=== PATIENT | male | born 1950 | race Caucasian/White ===

== ENCOUNTER 2020-10-07 12:14 | Outpatient (REF) | payer MEDICARE, SELFPAY | END 2020-10-07 12:15 | disposition home or self-care (01) | LOC: HO.LAB 12:14 | PROVIDERS: PCP Internal Medicine; Visit Provider Internal Medicine | DX: Z20.822 Contact with and (suspected) exposure to COVID-19 (principal) | CPT/HCPCS: 36415; C9803; U0003; U0005 ==

== ENCOUNTER 2021-03-11 09:23 | Outpatient (REF) | payer MEDICARE, SELFPAY ==
[2021-03-11 10:09] LABS: MANUAL DIFF FLAG NO
[2021-03-11 10:12] LABS: Basophils Percent Auto 0.7 % (0-2); Eosinophils Absolute Auto 0.1 X10*3/uL (0.0-0.4); Eosinophils Percent Auto 1.8 % (0-4); Hemoglobin 13.8 g/dl (14.0-18.0); Imm Gran Abs Auto 0.02 X10*3/uL (0.00-0.03); Imm Gran Pct Auto 0.5 % (0.0-0.4); Lymphocytes Absolute Auto 0.7 X10*3/uL (1.2-4.9); Mean Corpuscular HGB Conc 33.7 g/dl (31.0-36.0); Mean Corpuscular Hemoglobin 32.2 pg (27.0-33.0); Mean Corpuscular Volume 95.8 fL (80-98); Monocytes Absolute Auto 0.4 X10*3/uL (0.1-1.2); Monocytes Percent Auto 9.6 % (2-11); Neutrophils Absolute Auto 3.1 X10*3/uL (2.0-8.3); Neutrophils Percent Auto 70.4 % (45-73); Platelet Count 239 X10*3/uL (160-400); Red Blood Count 4.28 X10*6/uL (4.60-5.80); White Blood Count 4.4 X10*3/uL (4.8-10.8)
[2021-03-11 10:41] LABS: Alanine Aminotransferase 16 U/L (0-40); Albumin Level 4.4 g/dL (3.5-5.0); Alkaline Phosphatase 49 U/L (39-117); Anion Gap 11 (12-20); Aspartate Amino Transferase 25 U/L (5-37); Blood Urea Nitrogen 25 mg/dL (9-16); Calcium 9.2 mg/dL (8.4-10.2); Carbon Dioxide 29 mmol/L (22-29); Chloride 104 mmol/L (96-108); Cholesterol 158 mg/dL; Estimated Glomerular Filt Rate 59; Glucose Fasting 99 mg/dL (60-99); HDL Cholesterol 52 mg/dL; LDL Cholesterol Calculated 93 mg/dl; Potassium 4.6 mmol/L (3.3-5.1); Sodium 139 mmol/L (135-145); Total Protein 6.9 g/dL (6.5-8.0); Triglycerides 66 mg/dL; Uric Acid 4.4 mg/dL (3.4-7.0)
[2021-03-11 11:03] LABS: Free T4 (Free Thyroxine) 0.97 ng/dL (0.71-1.85); Prostate Specific Antigen 1.49 ng/mL (<0.05-4.0); Thyroid Stimulating Hormone 2.97 uIU/mL (0.32-4.0)
== END 2021-03-11 09:24 | disposition home or self-care (01) ==
LOC: HO.LAB 09:23
PROVIDERS: PCP Internal Medicine; Visit Provider Internal Medicine
DX: I10 Essential (primary) hypertension (principal); E03.9 Hypothyroidism, unspecified; E78.00 Pure hypercholesterolemia, unspecified; Z87.39 Personal history of other diseases of the musculoskeletal system and connective tissue; R35.1 Nocturia
CPT/HCPCS: 36415; 80053; 80061; 84153; 84439; 84443; 84550; 85025

== ENCOUNTER 2022-05-09 08:36 | Outpatient (REF) | payer MEDICARE, SELFPAY ==
--- NOTE | ~2022-05-09 | XR_ITS ---
EXAMINATION: XR CHEST CLINICAL INFORMATION: Posterior upper left pain, scapular region. Weight loss. COMPARISON: Chest radiographs 04/19/2019, 12/02/2011 TECHNIQUE: 2 views of the chest were obtained. FINDINGS: No pneumothorax, pleural reaction, infiltrate, or effusion. There is no lobar or segmental airspace consolidation or groundglass opacity. The costophrenic sulci are clear. No hyperinflation. Heart size normal. Vascularity normal. The hilar and mediastinal contours are unremarkable. No visible acute bony abnormality. XR/XR chest 2V IMPRESSION: Unremarkable examination.
[2022-05-09 08:50] LABS: MANUAL DIFF FLAG NO
[2022-05-09 09:36] LABS: Appearance Urine Clear; Color Urine Yellow; Glucose Urine UA Negative (Negative); Leukocyte Esterase Urine Negative (Negative); Nitrite Urine Negative (Negative); Urine Blood Negative (Negative); Urine Ketones Trace mg/dL (Negative); Urine Protein Negative (Neg-Trace)
[2022-05-09 09:37] LABS: Basophils Percent Auto 0.9 % (0-2); Eosinophils Absolute Auto 0.3 X10*3/uL (0.0-0.4); Hematocrit 43.1 % (42.0-52.0); Hemoglobin 14.3 g/dl (14.0-18.0); Imm Gran Abs Auto 0.02 X10*3/uL (0.00-0.03); Imm Gran Pct Auto 0.4 % (0.0-0.4); Lymphocytes Absolute Auto 1.1 X10*3/uL (1.2-4.9); Mean Corpuscular HGB Conc 33.2 g/dl (31.0-36.0); Mean Corpuscular Hemoglobin 31.8 pg (27.0-33.0); Mean Corpuscular Volume 95.8 fL (80.0-98.0); Mean Platelet Volume 9.8 fL (9.4-12.4); Monocytes Absolute Auto 0.4 X10*3/uL (0.1-1.2); Monocytes Percent Auto 9.3 % (2-11); Neutrophils Absolute Auto 2.6 x10*3/uL (2.0-8.3); Neutrophils Percent Auto 58.4 % (45-73); Platelet Count 290 X10*3/uL (160-400); Red Cell Distribution Width 14.6 % (11.0-16.0); White Blood Count 4.5 X10*3/uL (4.8-10.8)
[2022-05-09 10:05] LABS: Alanine Aminotransferase 21 U/L (0-40); Albumin Level 4.6 g/dL (3.5-5.0); Alkaline Phosphatase 57 U/L (39-117); Anion Gap 16 (12-20); Aspartate Amino Transferase 25 U/L (5-37); Bilirubin Total 0.8 mg/dL (0.0-1.0); Blood Urea Nitrogen 23 mg/dL (9-16); C Reactive Protein 0.06 mg/dL (< or = 0.50); Calcium 9.4 mg/dL (8.4-10.2); Carbon Dioxide 26 mmol/L (22-29); Chloride 102 mmol/L (96-108); Cholesterol 178 mg/dL; Estimated Glomerular Filt Rate 57; Glucose Fasting 99 mg/dL (60-99); HDL Cholesterol 53 mg/dL; LDL Cholesterol Calculated 109 mg/dl; Potassium 4.5 mmol/L (3.3-5.1); Sodium 139 mmol/L (135-145); Total Protein 7.3 g/dL (6.5-8.0); Triglycerides 81 mg/dL
[2022-05-09 10:28] LABS: Free T4 (Free Thyroxine) 1.01 ng/dL (0.71-1.85); Prostate Specific Antigen Scr 1.38 ng/mL (<0.05-4.0); Thyroid Stimulating Hormone 2.21 uIU/mL (0.32-4.0)
== END 2022-05-09 08:37 | disposition home or self-care (01) ==
LOC: HO.XRAY 08:36
PROVIDERS: PCP Internal Medicine; Visit Provider Internal Medicine
DX: I12.9 Hypertensive chronic kidney disease with stage 1 through stage 4 chronic kidney disease, or unspecified chronic kidney disease (principal); E03.9 Hypothyroidism, unspecified; R63.4 Abnormal weight loss; N18.9 Chronic kidney disease, unspecified; Z12.5 Encounter for screening for malignant neoplasm of prostate
CPT/HCPCS: 36415; 71046; 80053; 80061; 81003; 84153; 84439; 84443; 85025; 86140

== ENCOUNTER 2022-06-22 10:13 | Outpatient (REF) | payer MEDICARE, SELFPAY ==
--- NOTE | ~2022-06-22 | US_ITS ---
EXAMINATION: US EXTRACRANIAL CAROTID DUPLEX, BILATERAL CLINICAL INFORMATION: Carotid stenosis. Hypertension. COMPARISON: 05/07/2019. TECHNIQUE: Real-time ultrasound and Doppler techniques (integrating B-mode 2-D vascular images, Doppler spectral analysis and color-flow Doppler imaging) were utilized to interrogate the extracranial carotid arteries, the vertebral arteries and proximal subclavian arteries bilaterally. The degree of stenosis is determined by criteria similar to NASCET. FINDINGS: Right Side: 1. There is moderate atherosclerotic plaque seen in the bifurcation/proximal ICA region. 2. The common carotid artery PSV proximally is 84 cm/s and distally 90 cm/s. 3. The proximal internal carotid artery velocities are 90 cm/s systolic and 32 cm/s diastolic. 4. The proximal external carotid artery PSV is 469 cm/s. 5. The vertebral artery shows antegrade flow. 6. The subclavian artery waveforms are normal. Left Side: 1. There is mild atherosclerotic plaque seen in the bifurcation/proximal ICA region. 2. The common carotid artery PSV proximally is 167 cm/s and distally 130 cm/s. 3. The proximal internal carotid artery velocities are 65 cm/s systolic and 17 cm/s diastolic. 4. The proximal external carotid artery PSV is 125 cm/s. 5. The vertebral artery shows antegrade flow. 6. The subclavian artery waveforms are normal. US/US carotid duplex BI IMPRESSION: 1. RIGHT: Minimal, non-hemodynamically significant stenosis of the proximal right internal carotid artery corresponding to a 0-49% stenosis by velocity criteria. 2. LEFT: Minimal, non-hemodynamically significant stenosis of the proximal left internal carotid artery corresponding to a 0-49% stenosis by velocity criteria. 3. There is no change in the category severity of disease when compared to the previous study dated 05/07/2019.
--- NOTE | ~2022-06-22 | US_ITS ---
EXAMINATION: US THYROID CLINICAL INFORMATION: History of neck radiation. COMPARISON: None. TECHNIQUE: Linear transducer grayscale and color Doppler examination with attention to the region of the thyroid. FINDINGS: SIZE: Measurements of the thyroid lobes and nodules are given in sagittal, anteroposterior and transverse dimensions respectively. Right Thyroid Lobe: 4.2 x 1.3 x 1.0 cm, volume 2.9 mL. Previously 4.8 x 1.7 x 1.3 cm, volume 5.5 mL. Parenchyma: The gland echotexture is heterogeneous. Thyroid vascularity is normal. Left Thyroid Lobe: 4.1 x 1.3 x 1.5 cm, volume 4.2 mL. Previously 2.9 x 1.2 x 1.3 cm, volume 2.5 mL. Parenchyma: The gland echotexture is heterogeneous. Thyroid vascularity is normal. Isthmus: 0.2 cm in maximum AP dimension. Previously 0.4 cm. No focal thyroid nodule is seen. NODES: No lymphadenopathy is seen in the tissue surrounding the thyroid gland. US/US thyroid IMPRESSION: Diminutive thyroid with heterogeneous echotexture bilaterally. No thyroid nodule or mass seen..
== END 2022-06-22 10:14 | disposition home or self-care (01) ==
LOC: HO.US 10:13
PROVIDERS: Visit Provider Internal Medicine
DX: I65.29 Occlusion and stenosis of unspecified carotid artery (principal); Z92.3 Personal history of irradiation
CPT/HCPCS: 76536; 93880

== ENCOUNTER 2022-10-24 11:10 | Day surgery (SDC) | payer MEDICARE, SELFPAY ==
[2022-10-24] VITALS (9 sets, daily range): BP systolic 121–227; BP diastolic 78–136; PULSE 72–99; RESP 14–20; TEMP 37–37.1; O2SAT 96–98; BMI 25.1
--- NOTE | 2022-10-24 12:37 | HO.ANESPROP2 ---
HPI - Anesthesia Eval Consult details Narrative: colonoscopy [facility] Past Medical History Medical History (Updated 10/21/22 @ 12:26 by Little Mayo RN) GERD (gastroesophageal reflux disease) Gout HTN (hypertension) Hyperlipidemia Hypothyroidism Squamous cell carcinoma of tonsil Family History Family history of problems with anesthesia: No Surgical History Surgical History (Updated 10/21/22 @ 12:26 by Little Mayo RN) H/O neck surgery History of Problems with Anesthesia: No Social History Social History Patient Tobacco Use Status: Never used Tobacco Use of substances other than those prescribed or required for medical reasons: No Are you DNR?: No Advance Directives: No Advance Directives Information Provided: Yes Recently lost weight without trying: No Nutrition Risks: No Nutritional Risk Meds Allergies Allergy/AdvReac Type Severity Reaction Status Date / Time azithromycin Allergy Mild SWELLING,SKIN Unverified 05/07/20 15:09 [From Zithromax Z-Maynor] IRRITATION Active Medications: Current Medications Sodium Biphosphate/Sodium Phosphate (Sodium Phosphate,Uint[place]-Dibasic 133 Ml Enema) 133 ml GA ONCE PRN PRN Reason: Poor Colonoscopy Prep Results Home Medications Medication Instructions Recorded Confirmed Last Taken Type allopurinol 300 mg tablet 1 tab PO DAILY 10/21/22 10/21/22 Unknown History atorvastatin 10 mg tablet 1 tab PO DAILY 10/21/22 10/21/22 Unknown History levothyroxine 75 mcg tablet 1 tab PO DAILY 10/21/22 10/21/22 Unknown History lisinopril 10 mg tablet 1 tab PO BID 10/21/22 10/21/22 Unknown History omeprazole 20 mg capsule,delayed 1 cap PO DAILY 10/21/22 10/21/22 Unknown History release Exam Exam Date and Time: October 24, 2022 1237 Height,Weight and Vital Signs: Height 5 ft 10 in Weight 79.379 kg Last Vital Signs Temp 98.7 F 10/24/22 12:29 Pulse 99 10/24/22 12:33 Resp 16 10/24/22 12:29 BP 205/123 H 10/24/22 12:33 Pulse Ox 97 10/24/22 12:29 O2 Del Method 10/24/22 12:29 Narrative Narrative: high bp on admission, no meds taken Airway Mallampati Class: II TM Dist: >3cm Neck ROM: Full Heart: rrr Lungs: cta Assessment and Plan Final Anesthetic Review Family History of Problems with Anesthesia: No History of Problems with Anesthesia: No NPO: Yes ASA Class: II Final Preanesthetic Review: No Changes in Pt Med Stat, Meds/Allgs Chart Reviewed and Anes Risks/Benef Reviewed Patient Risk: Intermediate Procedure Risk: Low Anesthetic Plan Anesthetic Plan: MAC: and Agree w/ Assess. and Plan Disposition: Standard PACU
--- NOTE | 2022-10-24 13:48 | PM.OP ---
Brief Operative Note Date of Service: 10/24/22 Pre-op diagnosis: Screening Post-op diagnosis: other (Polyps) Procedure: Colonoscopy to the cecum and TI with bx/removal of appendiceal orifice polyp, and hot snare polypectomy of 2 adjacent cecal polyps with placement of 1 Resolution clip. Surgeon: Boyd Newton Anesthesia: MAC Was an Magnetic Resonance Technologist used for this Procedure?: No Estimated blood loss (mL): 2.0 Pathology: other (A. Appendiceal orifice polyp B. Cecal polyps) Condition: stable Disposition: PACU
--- NOTE | 2022-10-25 00:18 | OP_ITS ---
SURGEON: Boyd Newton MD INDICATIONS: The patient presents for evaluation of colorectal cancer screening and family history of colon cancer, as well as his personal history of tubular adenoma of the colon. Full consent has been obtained from him for this, including risks of bleeding and perforation. PREOPERATIVE DIAGNOSIS: POSTOPERATIVE DIAGNOSIS: PROCEDURE PERFORMED: ESTIMATED BLOOD LOSS: COMPLICATIONS: ANESTHESIA: Medication used, monitored anesthesia care. ASSISTANTS: SPECIMENS: PREOPERATIVE DIAGNOSES: Colorectal cancer screening, personal history of tubular adenoma of the colon, family history of colon cancer. POSTOPERATIVE DIAGNOSES: Colorectal cancer screening, personal history of tubular adenoma of the colon, family history of colon cancer, colon polyps, diverticulosis, and internal hemorrhoids. PROCEDURES PERFORMED: Colonoscopy to the cecum and terminal ileum with biopsy and removal of polyp, hot snare polypectomy, and placement of 1 Resolution clip. DESCRIPTION OF PROCEDURE: The patient was placed in the left lateral decubitus position. The digital rectal exam revealed no abnormalities. The [employer] video pediatric colonoscope was entered into the rectum and advanced easily to the cecum. Once in the cecum, I did identify cecal pouch with appendiceal orifice and a normal-appearing ileocecal valve. The terminal ileum was cannulated and appeared normal. The scope was withdrawn back in the colon. The entire cecum was well visualized. In the appendiceal orifice, was an approximately 3 mm polyp which was biopsied and completely removed with a cold biopsy forceps. The remainder of the appendiceal orifice appeared normal. In the cecum, in the region of the ileocecal valve were 2 approximately 5 or 6 mm grossly adenomatous polyps which were each removed by hot snare polypectomy with at least 1 recovered by suction. The polypectomy site appeared clean, without any sign of residual polyp nor bleeding, but I did place a single Resolution clip onto the site with good deployment and good hemostasis. The scope was then slowly withdrawn assessing all mucosal surfaces carefully. Preparation was excellent. I did not visualize any other polyps, colitis, nor angiodysplasia. There was a moderate amount of sigmoid and descending colon diverticulosis. In the rectum, the scope was retroflexed visualizing internal hemorrhoids, but no other pathology. The rectal mucosa appeared normal. The scope was straightened out and withdrawn from the patient. He tolerated the procedure well and was returned to the recovery area in stable condition. IMPRESSION: 1. Colon polyps. 2. Diverticulosis. 3. Internal hemorrhoids. PLAN: The results of the pathology will be checked. Given the findings, particularly with the small polyp in the appendiceal orifice, and the family history of colon cancer, I would recommend a repeat colonoscopy in 3 years for further screening purposes. He was advised not to use any aspirin or NSAIDs for 1 week. This has been discussed with his . MD JUAN De Anda/CHRISSY / [phone]
== END 2022-10-24 14:40 | disposition home or self-care (01) ==
PROVIDERS: PCP Internal Medicine; Visit Provider Internal Medicine
PROC: 0DJD8ZZ Inspection of Lower Intestinal Tract, Via Natural or Artificial Opening Endoscopic (ICD-10-PCS; CPT 45378; principal; 2022-10-24 12:40)
DX: Z12.11 Encounter for screening for malignant neoplasm of colon (principal); Z86.010 Personal history of colon polyps; Z80.0 Family history of malignant neoplasm of digestive organs; D12.0 Benign neoplasm of cecum; D12.1 Benign neoplasm of appendix; K57.30 Diverticulosis of large intestine without perforation or abscess without bleeding; K64.8 Other hemorrhoids; K21.9 Gastro-esophageal reflux disease without esophagitis; I10 Essential (primary) hypertension; E78.5 Hyperlipidemia, unspecified; E03.9 Hypothyroidism, unspecified; M10.9 Gout, unspecified; Z79.899 Other long term (current) drug therapy; Z85.21 Personal history of malignant neoplasm of larynx; Z92.21 Personal history of antineoplastic chemotherapy; Z92.3 Personal history of irradiation
CPT/HCPCS: 45385; 45380; 88305; J2370

== ENCOUNTER 2022-10-27 12:10 | Outpatient (REF) | payer MEDICARE, SELFPAY ==
--- NOTE | ~2022-10-27 | US_ITS ---
EXAMINATION: US EXTRACRANIAL CAROTID DUPLEX, BILATERAL CLINICAL INFORMATION: Right carotid bruit COMPARISON: 05/07/2019 TECHNIQUE: Real-time ultrasound and Doppler techniques (integrating B-mode 2-D vascular images, Doppler spectral analysis and color-flow Doppler imaging) were utilized to interrogate the extracranial carotid arteries, the vertebral arteries and proximal subclavian arteries bilaterally. The degree of stenosis is determined by criteria similar to NASCET. FINDINGS: Right Side: 1. There is moderate to marked atherosclerotic plaque seen in the bifurcation/proximal ICA region. 2. The common carotid artery PSV proximally is 46 cm/s and distally 89 cm/s. 3. The proximal internal carotid artery velocities are 96 cm/s systolic and 27 cm/s diastolic. 4. The proximal external carotid artery PSV is 611 cm/s. 5. The vertebral artery shows antegrade flow. 6. The subclavian artery waveforms are normal. Left Side: 1. There is mild atherosclerotic plaque seen in the bifurcation/proximal ICA region. 2. The common carotid artery PSV proximally is 90 cm/s and distally 59 cm/s. 3. The proximal internal carotid artery velocities are 61 cm/s systolic and 26 cm/s diastolic. 4. The proximal external carotid artery PSV is 126 cm/s. 5. The vertebral artery shows antegrade flow. 6. The subclavian artery waveforms are normal. US/US carotid duplex BI IMPRESSION: 1. RIGHT: Minimal, non-hemodynamically significant stenosis of the proximal right internal carotid artery corresponding to a 0-49% stenosis by velocity criteria. However, there is a severe stenosis involving the proximal right ECA with velocities of 611 cm/s which probably accounts for the patient's bruit. 2. LEFT: Minimal, non-hemodynamically significant stenosis of the proximal left internal carotid artery corresponding to a 0-49% stenosis by velocity criteria. 3. There is no change in the category severity of disease when compared to the previous study dated 04/27/2019 although velocity in the right ECA has increased from 406 to 611 cm/s.
[2022-10-27 13:45] LABS: MANUAL DIFF FLAG NO
[2022-10-27 14:02] LABS: Basophils Percent Auto 0.8 % (0-2); Eosinophils Absolute Auto 0.1 X10*3/uL (0.0-0.4); Hemoglobin 15.1 g/dl (14.0-18.0); Imm Gran Abs Auto 0.04 X10*3/uL (0.00-0.03); Imm Gran Pct Auto 0.8 % (0.0-0.4); Lymphocytes Absolute Auto 0.9 X10*3/uL (1.2-4.9); Lymphocytes Percent Auto 18.6 % (20-40); Mean Corpuscular HGB Conc 33.6 g/dl (31.0-36.0); Mean Corpuscular Volume 92.4 fL (80.0-98.0); Mean Platelet Volume 9.7 fL (9.4-12.4); Monocytes Absolute Auto 0.5 X10*3/uL (0.1-1.2); Monocytes Percent Auto 9.4 % (2-11); Neutrophils Absolute Auto 3.4 x10*3/uL (2.0-8.3); Neutrophils Percent Auto 69.4 % (45-73); Platelet Count 258 X10*3/uL (160-400); Red Blood Count 4.87 X10*6/uL (4.60-5.80); Red Cell Distribution Width 14.1 % (11.0-16.0); White Blood Count 4.9 X10*3/uL (4.8-10.8)
[2022-10-27 15:59] LABS: Alanine Aminotransferase 21 U/L (0-40); Anion Gap 16 (12-20); Aspartate Amino Transferase 28 U/L (5-37); Bilirubin Total 1.4 mg/dL (0.0-1.0); Blood Urea Nitrogen 16 mg/dL (9-16); Calcium 9.7 mg/dL (8.4-10.2); Carbon Dioxide 28 mmol/L (22-29); Chloride 101 mmol/L (96-108); Estimated Glomerular Filt Rate > 60; Glucose Random 87 mg/dL (60-115); Potassium 4.1 mmol/L (3.3-5.1); Sodium 141 mmol/L (135-145)
[2022-10-27 16:00] LABS: Albumin Level 4.6 g/dL (3.5-5.0); Alkaline Phosphatase 61 U/L (39-117); C Reactive Protein 0.11 mg/dL (< or = 0.50); Total Protein 7.3 g/dL (6.5-8.0)
[2022-10-27 16:19] LABS: Free T4 (Free Thyroxine) 0.98 ng/dL (0.71-1.85); Thyroid Stimulating Hormone 2.85 uIU/mL (0.32-4.0)
== END 2022-10-27 12:11 | disposition home or self-care (01) ==
LOC: HO.US 12:10
PROVIDERS: PCP Internal Medicine; Visit Provider Internal Medicine
DX: I10 Essential (primary) hypertension (principal); E03.9 Hypothyroidism, unspecified; R09.89 Other specified symptoms and signs involving the circulatory and respiratory systems
CPT/HCPCS: 36415; 80053; 84439; 84443; 85025; 86140; 93880

== ENCOUNTER 2023-01-13 08:02 | Outpatient (REF) | payer MEDICARE, SELFPAY ==
[2023-01-13 09:05] LABS: Anion Gap 12 (12-20); Blood Urea Nitrogen 26 mg/dL (9-16); Calcium 9.6 mg/dL (8.4-10.2); Carbon Dioxide 28 mmol/L (22-29); Chloride 105 mmol/L (96-108); Estimated Glomerular Filt Rate > 60; Glucose Random 103 mg/dL (60-115); Potassium 4.6 mmol/L (3.3-5.1); Sodium 140 mmol/L (135-145)
== END 2023-01-13 08:03 | disposition home or self-care (01) ==
LOC: HO.LAB 08:02
PROVIDERS: PCP Internal Medicine; Visit Provider Internal Medicine
DX: I10 Essential (primary) hypertension (principal)
CPT/HCPCS: 36415; 80048

== ENCOUNTER 2023-04-01 13:14 | Emergency (ER) | payer MEDICARE, SELFPAY ==
[2023-04-01 13:41] VITALS: BP 178/112; PULSE 76; RESP 16; TEMP 36.8; O2SAT 96; BMI 24.4
--- NOTE | 2023-04-01 13:47 | ED_ITS ---
HPI - General Adult General Chief complaint: Wound/Laceration Stated complaint: cut finger w/ chain saw Time Seen by Provider: 04/01/23 13:46 Source: patient, RN notes reviewed and old records reviewed Mode of arrival: ambulatory Limitations: no limitations History of Present Illness HPI narrative: 72-year-old male presents for evaluation of a laceration to his left thumb. Patient reports he was using a handheld pain soft 3 days ago and he accidentally cut his left thumb He did not get seen at the time of the injury. He reports that he continues to open up and bleed He reports that since the injury he has been very active doing yard work and coughing He is not anticoagulated Related Data Home Medications Medication Instructions Recorded Confirmed allopurinol 300 mg tablet 1 tab PO DAILY 10/21/22 10/21/22 atorvastatin 10 mg tablet 1 tab PO DAILY 10/21/22 10/21/22 levothyroxine 75 mcg tablet 1 tab PO DAILY 10/21/22 10/21/22 lisinopril 10 mg tablet 1 tab PO BID 10/21/22 10/21/22 omeprazole 20 mg capsule,delayed 1 cap PO DAILY 10/21/22 10/21/22 release Allergies Allergy/AdvReac Type Severity Reaction Status Date / Time azithromycin Allergy Mild SWELLING,SKIN Verified 04/01/23 13:41 [From Zithromax Z-Maynor] IRRITATION Review of Systems 2 Integumentary/Breasts: Skin/Breast: Reports wounds PMFSH Past Medical History Medical History (Updated 04/01/23 @ 13:47 by Flakito Camara) GERD (gastroesophageal reflux disease) Gout HTN (hypertension) Hyperlipidemia Hypothyroidism Squamous cell carcinoma of tonsil Surgical History (Updated 10/21/22 @ 12:26 by Little Mayo RN) H/O neck surgery Social History Social History Patient Tobacco Use Status: Never used Tobacco Physical Exam ED Vital Signs: Vital Signs - 24 hr 04/01/23 13:41 Temperature 98.3 F Pulse Rate 76 Respiratory Rate 16 Blood Pressure 178/112 H Pulse Oximetry 96 Oxygen Delivery Method Room Air BMI result Body Mass Index 24.4 Const General: healthy appearing, comfortable, no acute distress, alert and awake Nutritional Appearance: well nourished Orientation/consciousness: patient oriented x3 HENMT Head: Yes normocephalic and Yes atraumatic Throat: Yes posterior oropharynx normal Eyes Eyelids: Yes eyelids normal Conjunctivae: conjunctivae normal Sclerae: sclerae normal Corneas: corneas normal Pupils: Equal, round and reactive pupils present EOM: EOMs intact bilaterally Neck Neck: Yes full ROM Resp Effort & Inspection: normal respiratory effort, able to speak in complete sentences and not labored Skin Other: Patient has a 2 cm, linear laceration to fingertip of the left 1st finger. He has a smaller adjacent, 0.5 cm laceration the wound is in the beginning stages of healing, it is not actively bleeding. The wound edges are well approximated General skin exam: no rashes or lesions noted and elasticity normal Neuro General: patient oriented x3 Cranial nerves: Yes Equal, round and reactive pupils present and Yes Bilaterally intact EOM present Cognition (Neuro): normal cognition Extrem Other: Moving all extremities well without any obvious deformities. Full range of motion of flexion, extension and opposition of the left 1st finger Medical Decision Making Medical Decision Making MDM Narrative: Patient sustained a laceration to the left thumb 3 days ago. Given delay, it is not amenable to closure but is well approximated. The wound was probed with a sterile dressing. No evidence of infection. Patient was offered a tetanus update but declines. He was also offered x-ray imaging given the mechanism of injury but declined as well. I do have a low suspicion for fracture, as it appears the wound is quite superficial. Patient was educated wound management and discharge Differential Diagnosis Differential Diagnoses: The differential diagnosis associated with the presentation includes Laceration Skin tear Puncture wound Abrasion Discharge Plan Discharge Clinical Impression: Laceration Patient Disposition: Home, Self-Care Instructions: Laceration (ED) Additional Instructions: Keep the area clean and dry Avoid strenuous activity for the next week including golf Follow-up with your primary doctor Prescriptions: No Action atorvastatin 10 mg tablet 1 tab PO DAILY levothyroxine 75 mcg tablet 1 tab PO DAILY lisinopril 10 mg tablet 1 tab PO BID omeprazole 20 mg capsule,delayed release(DR/EC) 1 cap PO DAILY allopurinol 300 mg tablet 1 tab PO DAILY
== END 2023-04-01 13:57 | disposition home or self-care (01) ==
PROVIDERS: Emergency Provider Emergency Medicine Emergency Medical Services
DX: S61.012A Laceration without foreign body of left thumb without damage to nail, initial encounter (principal); W29.3XXA Contact with powered garden and outdoor hand tools and machinery, initial encounter; Y93.89 Activity, other specified; Y92.9 Unspecified place or not applicable; Y99.9 Unspecified external cause status
CPT/HCPCS: 99282

== ENCOUNTER 2023-11-23 09:20 | Outpatient (REF) | payer MEDICARE, SELFPAY ==
[2023-11-23 10:49] LABS: MANUAL DIFF FLAG NO
[2023-11-23 10:51] LABS: Basophils Percent Auto 0.9 % (0-2); Eosinophils Absolute Auto 0.1 X10*3/uL (0.0-0.4); Eosinophils Percent Auto 1.6 % (0-4); Hematocrit 43.6 % (42.0-52.0); Hemoglobin 14.9 g/dl (14.0-18.0); Imm Gran Abs Auto 0.03 X10*3/uL (0.00-0.03); Imm Gran Pct Auto 0.7 % (0.0-0.4); Lymphocytes Absolute Auto 0.9 X10*3/uL (1.2-4.9); Lymphocytes Percent Auto 20.8 % (20-40); Mean Corpuscular HGB Conc 34.2 g/dl (31.0-36.0); Mean Corpuscular Hemoglobin 32.5 pg (27.0-33.0); Mean Corpuscular Volume 95.2 fL (80.0-98.0); Mean Platelet Volume 9.6 fL (9.4-12.4); Monocytes Absolute Auto 0.4 X10*3/uL (0.1-1.2); Monocytes Percent Auto 9.8 % (2-11); Neutrophils Absolute Auto 2.8 x10*3/uL (2.0-8.3); Neutrophils Percent Auto 66.2 % (45-73); Platelet Count 218 X10*3/uL (160-400); Red Blood Count 4.58 X10*6/uL (4.60-5.80); Red Cell Distribution Width 14.5 % (11.0-16.0); White Blood Count 4.3 X10*3/uL (4.8-10.8)
[2023-11-23 10:58] LABS: Appearance Urine Clear; Color Urine Yellow; Glucose Urine UA Negative (Negative); Leukocyte Esterase Urine Negative (Negative); Nitrite Urine Negative (Negative); PH 5.5 (5.0-9.0); Specific Gravity - Urine 1.025 (1.005-1.025); Urine Blood Negative (Negative); Urine Ketones Trace mg/dL (Negative); Urine Protein Negative (Neg-Trace)
[2023-11-23 11:13] LABS: Alanine Aminotransferase 22 U/L (0-40); Albumin Level 4.5 g/dL (3.5-5.0); Alkaline Phosphatase 54 U/L (39-117); Anion Gap 11 (12-20); Aspartate Amino Transferase 27 U/L (5-37); Bilirubin Total 0.7 mg/dL (0.0-1.0); Blood Urea Nitrogen 34 mg/dL (9-16); Calcium 9.6 mg/dL (8.4-10.2); Carbon Dioxide 29 mmol/L (22-29); Chloride 105 mmol/L (96-108); Cholesterol 178 mg/dL (<200); Estimated Glomerular Filt Rate 47; Glucose Fasting 102 mg/dL (60-99); HDL Cholesterol 49 mg/dL (>40); LDL Cholesterol Calculated 108 mg/dL (<100); Potassium 4.1 mmol/L (3.3-5.1); Sodium 141 mmol/L (135-145); Total Protein 7.4 g/dL (6.5-8.0); Triglycerides 109 mg/dL (<150)
[2023-11-23 11:33] LABS: Prostate Specific Antigen Scr 1.33 ng/mL (<0.05-4.0)
== END 2023-11-23 09:21 | disposition home or self-care (01) ==
LOC: HO.10HDL 09:20
PROVIDERS: Visit Provider Internal Medicine
DX: Z12.5 Encounter for screening for malignant neoplasm of prostate (principal); I10 Essential (primary) hypertension; E78.00 Pure hypercholesterolemia, unspecified; K21.9 Gastro-esophageal reflux disease without esophagitis
CPT/HCPCS: 36415; 80053; 80061; 81003; 84153; 85025

== ENCOUNTER 2023-12-05 14:32 | Outpatient (REF) | payer MEDICARE, SELFPAY ==
--- NOTE | ~2023-12-05 | US_ITS ---
EXAMINATION: US RETROPERITONEAL COMPLETE (RENAL) CLINICAL INFORMATION: Chronic renal insufficiency. COMPARISON: Ultrasound abdomen complete 03/06/2018. TECHNIQUE: Real-time imaging of the kidneys and bladder. FINDINGS: RIGHT KIDNEY: 11.8 x 5.9 x 7.2 cm (SAG x AP x TRV). The kidney is normal in size, contour, and echogenicity. Renal cortical thickness is normal. No hydronephrosis. At the upper pole, a 7 mm nonobstructing calculus is seen. There are benign, simple cysts, the largest a 3.7 cm parapelvic cyst. These require no imaging follow-up. LEFT KIDNEY: 10.1 x 5.4 x 5.4 cm (SAG x AP x TRV). The kidney is normal in size, contour, and echogenicity. Renal cortical thickness is normal. No hydronephrosis. At the interpolar aspect, 3 adjacent 2 mm nonobstructing calculi are seen. There are benign, simple cysts, the largest a 3.0 cm upper pole cyst. These require no imaging follow-up. BLADDER: Well distended and normal. Bilateral ureteral jets are demonstrated. Prevoid bladder volume is 474 mL. Postvoid bladder volume is 49 mL. US/US retroperitoneal comp IMPRESSION: Nonobstructing bilateral renal calculi are seen, as detailed. There is no hydronephrosis.
== END 2023-12-05 14:33 | disposition home or self-care (01) ==
LOC: HO.US 14:32
PROVIDERS: PCP Internal Medicine; Visit Provider Internal Medicine
DX: N28.9 Disorder of kidney and ureter, unspecified (principal)
CPT/HCPCS: 76770

== ENCOUNTER → 2023-12-18 09:50 | Outpatient (REF) | payer MEDICARE, SELFPAY ==
--- NOTE | ~2023-12-18 | US_ITS ---
EXAMINATION: US EXTRACRANIAL CAROTID DUPLEX, BILATERAL CLINICAL INFORMATION: Right Carotid bruit, h/o neck radiation COMPARISON: Carotid duplex 10/27/2022 TECHNIQUE: Real-time ultrasound and Doppler techniques (integrating B-mode 2-D vascular images, Doppler spectral analysis and color-flow Doppler imaging) were utilized to interrogate the extracranial carotid arteries, the vertebral arteries and proximal subclavian arteries bilaterally. The degree of stenosis is determined by criteria similar to NASCET. FINDINGS: Right Side: 1. There is mild atherosclerotic plaque seen in the bifurcation/proximal ICA region. 2. The common carotid artery PSV proximally is 96 cm/s and distally 83 cm/s. 3. The proximal internal carotid artery velocities are 99 cm/s systolic and 21 cm/s diastolic. 4. The proximal external carotid artery PSV is 331 cm/s. 5. The vertebral artery shows antegrade flow. 6. The subclavian artery waveforms are normal. Left Side: 1. There is mild atherosclerotic plaque seen in the bifurcation/proximal ICA region. 2. The common carotid artery PSV proximally is 64 cm/s and distally 123 cm/s. 3. The proximal internal carotid artery velocities are 70 cm/s systolic and 21 cm/s diastolic. 4. The proximal external carotid artery PSV is 111 cm/s. 5. The vertebral artery shows antegrade flow. 6. The subclavian artery waveforms are normal. US/US carotid duplex BI IMPRESSION: 1. RIGHT: Minimal, non-hemodynamically significant stenosis of the proximal right internal carotid artery corresponding to a 0-49% stenosis by velocity criteria. 2. LEFT: Minimal, non-hemodynamically significant stenosis of the proximal left internal carotid artery corresponding to a 0-49% stenosis by velocity criteria. 3. There is no change in the category severity of disease when compared to the previous study dated 10/27/2022.
--- NOTE | 2023-12-18 09:53 | CA_ITS ---
Transthoracic Echocardiogram Patient (Last, First, Middle): Quan Casarez X Gender: Male Date of : 1950 Age: 73 Procedure Date: 12/18/2023 Procedure Type: Transthoracic Echocardiogram Location: OP Height: 180.34 cm Weight: 84.37 kg BSA: 2.04 m2 Heart Rate: bpm BP: 120 / 92 mmHg Furniture Arranger: HIGINIO Referring MD: Quan Stokes MD Symptoms: I10 HTN Study Quality: Adequate ECG Rhythm: Sinus Conclusions: - The left ventricular systolic function is normal. The calculated ejection fraction is 64% by biplane method. - There is moderate septal and moderate basal asymmetric hypertrophy. - The left atrium is moderately dilated. - There is mild calcification of the aortic valve. - There is mild mitral valve regurgitation. - Small plaque is seen in the sino tubular ridge. Findings Left Ventricle Normal left ventricular cavity size. There is normal left ventricular wall thickness. The left ventricular systolic function is normal. The calculated ejection fraction is 64% by biplane method. There is no evidence of regional wall motion abnormalities. Evidence suggests grade I (mild) diastolic dysfunction. There is moderate septal and moderate basal asymmetric hypertrophy. LV peak GLS -19.1%. Right Ventricle Normal right ventricular cavity size and systolic function. Atria The left atrium is moderately dilated. The right atrium is normal in size. Aortic Valve There is a normal trileaflet aortic valve. There is mild calcification of the aortic valve. There is no aortic valve stenosis. There is trace (trivial) aortic valve regurgitation. Mitral Valve The mitral valve appears normal. There is mild mitral valve regurgitation. There is no mitral valve stenosis. Pulmonic Valve The pulmonic valve is likely normal. Tricuspid Valve There is trace tricuspid valve regurgitation. There is no evidence of pulmonary hypertension. Great Vessels The asc aorta is normal in size. Small plaque is seen in the sino tubular ridge. Venous The inferior vena cava was not well visualized. Pericardium/Pleural There is no evidence of pericardial effusion. Prior Study Comparison No prior study available for comparison. Measurements 2D Linear Measurements IVSd: 1.52 0.6-0.9/0.6-1.0 cm LVIDd: 4.08 3.9-5.3/4.2-5.9 cm LVIDd Index: 2.00 2.4-3.2/2.2-3.1 cm/m2 LVIDs: 2.64 2.0-3.6 cm LVPWd: 1.17 0.7-1.1 cm LA Diam: 4.80 2.7-3.8/3.0-4.0 cm LAIDs Index: 2.35 1.5-2.3 cm/m2 LV Mass: 252.07 67-162/88-224 g LV Mass Index: 123.56 43-95/49-115 g/m2 LVOT Diam: 2.20 3.0+(-)1.3 cm 2D Systolic Function EF 4C: 66.80 >55% EF 2C: 64.00 >55% EF BiP: 64.30 >55% Mitral Valve MV Pk E: 0.83 MV PK A: 0.82 MV Decel Time: 186.00 E/A: 1.00 E'Lateral: 7.72 E'Medial: 5.44 E/E' Med: 15.30 E/E' Lat: 10.80 PHT: 54.00 MVA PHT: 4.07 Decel [place]: 4.47 Aortic Valve AoV Pk Mic[place]: 1.54 AoV Mn Mic[place]: 1.24 AoV VTI: 0.38 AoV Pk Grad: 9.00 Aov Mn Grad: 7.00 ALONDRA Cont.VTI: 2.25 LVOT LVOT Pk [place]: 0.93 LVOT Mn Micah: 0.66 LVOT VTI: 0.23 LVOT Pk Grad: 3.00 LVOT Mn Grad: 2.00 LVOT Diam: 2.20 LVOT Area: 3.80 Diastolic Function MV Pk E: 0.83 MV Pk A: 0.82 E/A: 1.00 E'Medial: 5.44 E/E' Med: 15.30 E' Laterial: 7.72 E/E' Lat: 10.80 Right Ventricle TAPSE (mm): 22.20 TVS' Micah: 12.20 Tricuspid Valve TR Pk Micah: 2.63 TR Pk Grad: 28.00 Great Vessels Aorta Sinus of Valsalva: 3.62 2.0-3.[address] [place]: 2.95 1.7-3.4 cm Ao Asc: 3.80 2.1-3.4 cm Ao Arch: 3.60 Updated in Other Vendor System with Status of Final Jey Joseph MD electronically signed on 12/18/2023 11:44:24 AM with status of Final
== END ==
LOC: HO.CARD 09:50
PROVIDERS: Visit Provider Internal Medicine
DX: I10 Essential (primary) hypertension (principal); R09.89 Other specified symptoms and signs involving the circulatory and respiratory systems
CPT/HCPCS: 93306; 93356; 93880

== ENCOUNTER → 2023-12-18 09:53 | Outpatient (BNV) | payer MEDICARE, SELFPAY | PROVIDERS: Visit Provider Internal Medicine | DX: I34.0 Nonrheumatic mitral (valve) insufficiency (principal); I35.8 Other nonrheumatic aortic valve disorders | CPT/HCPCS: 93306; 93356 ==

== ENCOUNTER 2024-12-19 12:23 | Emergency (ER) | payer MEDICARE, SELFPAY ==
--- NOTE | ~2024-12-19 | US_ITS ---
EXAMINATION: US TRIPLEX LOWER EXTREMITY, LEFT CLINICAL INFORMATION: Pain, trauma, calf injury. COMPARISON: None available. TECHNIQUE: Color-flow triplex imaging with spectral analysis and compression Doppler were performed on the left lower extremity. FINDINGS: Respiratory variation, normal compression and augmented flow are noted throughout the left lower extremity. The visualized common femoral vein, superficial femoral vein, profunda femoral vein, popliteal vein and midcalf peroneal and posterior tibial venous segments show no evidence of deep venous thrombosis. There is no Vu's cyst. No obvious muscle tear within the left calf noted. US/US venous duplex LE LT IMPRESSION: No evidence of deep venous thrombosis involving the left lower extremity. No obvious calf muscle tear identified. Electronically signed by: Antony Schulz MD 12/19/2024 03:18 PM EDT
--- NOTE | ~2024-12-19 | XR_ITS ---
EXAMINATION: XR KNEE, LEFT CLINICAL INFORMATION: Knee pain COMPARISON: None available. TECHNIQUE: Four views of the left knee. FINDINGS: No fracture, dislocation, or suspicious bone lesion. There is normal alignment. There is mild tricompartmental osteoarthrosis, most significant in the medial compartment. There is mild spurring of the tibial spines. There is normal patellar alignment. There is a small to moderate suprapatellar joint effusion. There is no soft tissue abnormality. XR/XR knee LT 4V IMPRESSION: 1. No acute bony abnormalities. 2. Mild tricompartmental osteoarthrosis, worse in the medial compartment. 3. Small to moderate sized suprapatellar effusion. Electronically signed by: Antony Schulz MD 12/19/2024 01:23 PM EDT
--- NOTE | ~2024-12-19 | CT_ITS ---
EXAMINATION: CT CERVICAL SPINE WITHOUT CONTRAST CLINICAL INFORMATION: Fall, head pain, neck pain. COMPARISON: None available. TECHNIQUE: Spiral CT imaging of the cervical spine performed in axial plane without contrast. Multiplanar reformatted images were constructed from the axial data set. This CT examination was performed using dose optimization techniques as appropriate, variously including the following: *Automated exposure control *Adjustment of mA and/or kV according to patient size (this includes techniques or standardized protocols for targeted exams where dose is matched to indication/reason for exam; i.e. extremities or head) *Use of iterative reconstruction technique FINDINGS: CORONAL ALIGNMENT: -There is a mild right convex scoliosis, apex at C3-4. SAGITTAL ALIGNMENT: -There is reversal of the normal lordosis centered at C5. -There is a degenerative appearing 3 mm anterolisthesis of C3 on C4. -There is a 2 mm degenerative retrolisthesis of C6 on C7. -There is no evidence of traumatic malalignment. C1-C2 AND CRANIOCERVICAL JUNCTION: -Intact and normally aligned. VERTEBRAL BODIES AND FACETS: -There are no fractures, compression deformities, or suspicious bone lesions. -Normal facet alignment. -Facet arthrosis present most significant on the left spanning C2-C4. DISCS: -Severe disc degeneration present at C6-7. -Moderate disc degeneration noted C5-C6, and C7-T1. -Mild to moderate degeneration noted at the other levels. CENTRAL CANAL: -No evidence of high-grade central canal narrowing or large disc herniation allowing for modality limitations. PREVERTEBRAL AND PARAVERTEBRAL SOFT TISSUES: -There are surgical clips in the region of both anterior cervical spaces. This is likely from modified radical neck dissection and left greater than right. -There is complete atrophy of the submandibular glands, likely radiation related changes. -Atrophy of the thyroid gland. LUNG APICES: -Not well imaged. CT/CT cervical spine wo IV con IMPRESSION: 1. No CT evidence of acute cervical spine fracture or injury. 2. Postop changes in the bilateral neck suggestive of prior neck dissection with associated radiation therapy changes. Correlate with any known history of neck malignancy and surgery. Electronically signed by: Antony Schulz MD 12/19/2024 03:08 PM EDT
--- NOTE | ~2024-12-19 | CT_ITS ---
EXAMINATION: CT HEAD WITHOUT CONTRAST CLINICAL INFORMATION: Fall, head strike. COMPARISON: None available. TECHNIQUE: Contiguous axial imaging was performed from the skull base to vertex without intravenous administration of contrast. This CT examination was performed using dose optimization techniques as appropriate, variously including the following: *Automated exposure control *Adjustment of mA and/or kV according to patient size (this includes techniques or standardized protocols for targeted exams where dose is matched to indication/reason for exam; i.e. extremities or head) *Use of iterative reconstruction technique FINDINGS: There is no evidence of intracranial hemorrhage or extra-axial fluid collection. There is no mass effect, or edema. No CT evidence of acute territorial infarct. Ventricles, sulci, and cisterns are normal in size and configuration for patient age. No hydrocephalus. No midline shift. Negative hyperdense MCA sign. Negative insular ribbon sign. Patchy periventricular and deep white matter hypoattenuation is consistent with mild to moderate small vessel ischemic changes. Normal pituitary. Mild atheromatous calcification of the bilateral carotid siphons. Globes and orbital contents image normally. No extracranial soft tissue abnormalities. Small amount of fluid with frothy secretions right posterior maxillary sinus. The paranasal sinuses, mastoid air cells, and tympanic cavities are otherwise normally aerated. No suspicious bony abnormalities. There are no acute fractures evident. CT/CT head/brain wo IV con IMPRESSION: 1. No acute intracranial abnormality. 2. Small amount of fluid with probably secretions right maxillary sinus. Electronically signed by: Antony Schulz MD 12/19/2024 03:00 PM EDT
[2024-12-19 12:46] VITALS: BP 147/85; PULSE 74; RESP 16; TEMP 36.6; O2SAT 95; BMI 24.4
--- NOTE | 2024-12-19 13:16 | ED.GENADULT ---
HPI - General Adult General Chief complaint: Extremity Injury, Lower Stated complaint: Fall - L leg injury Time Seen by Provider: 12/19/24 15:10 Source: patient, family and RN notes reviewed Mode of arrival: ambulatory Limitations: no limitations History of Present Illness ED Provider: Kinza Collins PA-C HPI narrative: This is a 74-year-old male, with a past medical history of high cholesterol, thyroid disease, and hypertension, who presents emergency department with concerns of left knee pain status post mechanical fall which occurred yesterday. Patient states that while he was outside at his home doing yd work he was caring his leaf blower and a cord and he accidentally twisted his ankle which caused him to twist his left leg, ultimately falling onto his left leg on concrete. He denies hitting his head or LOC. He is not on anticoagulation. He states that he immediately had pain in his left knee. He states that the pain worsened overnight and had difficulty sleeping secondary to pain. He states that he had some swelling in his left knee which caused him to have worsening pain. He states that since he has been resting in the emergency room, his pain and his swelling has decreased. Denies former injury to his left knee in the past. No other complaints or concerns at this time. MD complaint: Left knee pain Onset (ago): day(s) Radiation: non-radiation Quality: aching Pain Consistency: constant Relieving factors: none and immobilization Exacerbating factors: movement Associated symptoms: denies other symptoms Treatments prior to arrival: none Related Data Home Medications ?Medication ?Instructions ?Recorded ?Confirmed atorvastatin 10 mg tablet 1 tab PO DAILY 10/21/22 10/21/22 levothyroxine 75 mcg tablet 1 tab PO DAILY 10/21/22 10/21/22 lisinopril 10 mg tablet 1 tab PO BID 10/21/22 10/21/22 omeprazole 20 mg capsule,delayed 1 cap PO DAILY 10/21/22 10/21/22 release Previous Rx's ?Medication ?Instructions ?Recorded allopurinol 300 mg tablet 300 mg PO DAILY #90 tabs 12/13/24 Allergies Allergy/AdvReac Type Severity Reaction Status Date / Time azithromycin Allergy Mild SWELLING,SKIN Verified 12/19/24 12:50 [From Zithromax Z-Maynor] IRRITATION Review of Systems Review of Systems: General: Awake, alert, and oriented X3. No acute distress. HEENT: Normal inspection CVS: Normal heart rate and rhythm. Pulses normal. Respiratory: No respiratory distress Skin: Warm, dry, no rashes noted to exposed skin. Normal skin color. Normal skin turgor. Extremities: Left knee with no obvious bony deformity or swelling. Patient with mild tenderness palpation along the medial joint line, no obvious crepitus noted, he has full extension and flexion of the knee. No palpable deformities at the distal quadriceps insertion site. No joint laxity with varus and valgus strain. Negative anterior-posterior drawer test. No palpable calf cords, or calf pain. No pedal edema noted. Neuro: Oriented X 3. No motor deficit. No sensory deficit. Yes all other systems are reviewed and are negative Constitutional: Constitutional: Reports as per [facility] Past Medical History Medical History (Updated 12/19/24 @ 17:02 by LUCY Garces) Hypothyroidism GERD (gastroesophageal reflux disease) Hyperlipidemia HTN (hypertension) Gout Squamous cell carcinoma of tonsil Surgical History (Updated 10/21/22 @ 12:26 by Little Mayo RN) H/O neck surgery Social History Social History Unable to assess alcohol history related to: Unknown Patient Tobacco Use Status: Never used Tobacco Smoked in Last 30 Days: No Use of substances other than those prescribed or required for medical reasons: Unknown Advance Directives: No Advance Directives Information Provided: No Do you have a plan to hurt others: No Plan Physical Exam ED Vital Signs: Vital Signs - 24 hr 12/19/24 12:46 12/19/24 16:18 12/19/24 17:34 Temperature 97.8 F 98.8 F 98.9 F Pulse Rate 74 70 71 Respiratory Rate 16 20 16 Blood Pressure 147/85 H 173/94 H 165/80 H Pulse Oximetry 95 98 95 Oxygen Delivery Method Room Air Room Air Room Air BMI result Body Mass Index 24.4 Course Course Course Narrative: RmE: 74-year-old male presents to ED for left posterior knee pain unable to fully extend his leg due to posterior knee pain. Patient tripped and fell onto left knee. Patient states pain is in the posterior of the knee. Patient does not have any tenderness on palpation but does states posterior knee pain on extension. Patient denies hitting head or loss of consciousness. Patient is now on any blood thinners. 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 On arrival, patient mildly hypertensive at 147/85. Patient ambulatory with antalgic gait. Fall was mechanical, with twisting motion of his left knee. Differential diagnoses include internal ligament derangement of the knee, sprain, strain, contusion, fracture. Prior to my evaluation, the triage provider had ordered a C-spine CT, and head CT, with no acute findings. CT scan does show postop changes associated with radiation therapy changes. Ultrasound negative for DVT. CT of the brain shows evidence of possible sinusitis. Patient has no facial pain, no fevers or chills. He does report that he gets bad seasonal allergies and has been sneezing frequently. I discussed overall workup with patient, given we are unable to rule out a ligament injury, we are placing patient in a knee immobilizer, given crutches. He was given orthopedic referral for follow-up. Advised to call tomorrow to make an appointment. Given strict return precautions. He understands and agrees with plan, stable for discharge. Differential Diagnosis Differential Diagnoses: The differential diagnosis associated with the presentation includes See above Radiology Impression Discussion of test interpretation with radiology: I have reviewed the radiologist's reading. Radiologist Impression: FINDINGS: Respiratory variation, normal compression and augmented flow are noted throughout the left lower extremity. The visualized common femoral vein, superficial femoral vein, profunda femoral vein, popliteal vein and midcalf peroneal and posterior tibial venous segments show no evidence of deep venous thrombosis. There is no Vu's cyst. No obvious muscle tear within the left calf noted. US/US venous duplex LE LT IMPRESSION: No evidence of deep venous thrombosis involving the left lower extremity. No obvious calf muscle tear identified. Electronically signed by: Antony Schulz MD 12/19/2024 03:18 PM EDT Dictated By: Antony Schulz MD Signed By: <Electronically signed by CLINICAL INFORMATION: Fall, head pain, neck pain. COMPARISON: None available. TECHNIQUE: Spiral CT imaging of the cervical spine performed in axial plane without contrast. Multiplanar reformatted images were constructed from the axial data set. This CT examination was performed using dose optimization techniques as appropriate, variously including the following: *Automated exposure control *Adjustment of mA and/or kV according to patient size (this includes techniques or standardized protocols for targeted exams where dose is matched to indication/reason for exam; i.e. extremities or head) *Use of iterative reconstruction technique FINDINGS: CORONAL ALIGNMENT: -There is a mild right convex scoliosis, apex at C3-4. SAGITTAL ALIGNMENT: -There is reversal of the normal lordosis centered at C5. -There is a degenerative appearing 3 mm anterolisthesis of C3 on C4. -There is a 2 mm degenerative retrolisthesis of C6 on C7. -There is no evidence of traumatic malalignment. C1-C2 AND CRANIOCERVICAL JUNCTION: -Intact and normally aligned. VERTEBRAL BODIES AND FACETS: -There are no fractures, compression deformities, or suspicious bone lesions. -Normal facet alignment. -Facet arthrosis present most significant on the left spanning C2-C4. DISCS: -Severe disc degeneration present at C6-7. -Moderate disc degeneration noted C5-C6, and C7-T1. -Mild to moderate degeneration noted at the other levels. CENTRAL CANAL: -No evidence of high-grade central canal narrowing or large disc herniation allowing for modality limitations. PREVERTEBRAL AND PARAVERTEBRAL SOFT TISSUES: -There are surgical clips in the region of both anterior cervical spaces. This is likely from modified radical neck dissection and left greater than right. -There is complete atrophy of the submandibular glands, likely radiation related changes. -Atrophy of the thyroid gland. LUNG APICES: -Not well imaged. CT/CT cervical spine wo IV con IMPRESSION: 1. No CT evidence of acute cervical spine fracture or injury. 2. Postop changes in the bilateral neck suggestive of prior neck dissection with associated radiation therapy changes. Correlate with any known history of neck malignancy and surgery. Electronically signed by: Antony Schulz MD 12/19/2024 03:08 PM EDT Dictated By: Antony Schulz MD FINDINGS: There is no evidence of intracranial hemorrhage or extra-axial fluid collection. There is no mass effect, or edema. No CT evidence of acute territorial infarct. Ventricles, sulci, and cisterns are normal in size and configuration for patient age. No hydrocephalus. No midline shift. Negative hyperdense MCA sign. Negative insular ribbon sign. Patchy periventricular and deep white matter hypoattenuation is consistent with mild to moderate small vessel ischemic changes. Normal pituitary. Mild atheromatous calcification of the bilateral carotid siphons. Globes and orbital contents image normally. No extracranial soft tissue abnormalities. Small amount of fluid with frothy secretions right posterior maxillary sinus. The paranasal sinuses, mastoid air cells, and tympanic cavities are otherwise normally aerated. No suspicious bony abnormalities. There are no acute fractures evident. CT/CT head/brain wo IV con IMPRESSION: 1. No acute intracranial abnormality. 2. Small amount of fluid with probably secretions right maxillary sinus. Electronically signed by: Antony Schulz MD 12/19/2024 03:00 PM EDT Dictated By: Antony Schulz MD FINDINGS: No fracture, dislocation, or suspicious bone lesion. There is normal alignment. There is mild tricompartmental osteoarthrosis, most significant in the medial compartment. There is mild spurring of the tibial spines. There is normal patellar alignment. There is a small to moderate suprapatellar joint effusion. There is no soft tissue abnormality. XR/XR knee LT 4V IMPRESSION: 1. No acute bony abnormalities. 2. Mild tricompartmental osteoarthrosis, worse in the medial compartment. 3. Small to moderate sized suprapatellar effusion. Electronically signed by: Antony Schulz MD 12/19/2024 01:23 PM EDT Dictated By: Antony Schulz MD Discharge Plan Discharge Clinical Impression: Left knee sprain Patient Disposition: Home, Self-Care Instructions: Knee Sprain (ED), Crutch Instructions (ED), Leg Sprain (ED) Additional Instructions: You were seen in the emergency department due to left knee pain. Your x-ray show mild tricompartmental osteoarthrosis(degenerative changes), as well as a small to moderate size suprapatellar effusion (swelling). Your CT scan of your head does show a small amount of fluid within your right maxillary sinus, this is likely due to your seasonal allergies. Your CT scan of your neck shows postop changes associated with your radiation therapy. Your ultrasound of your leg does not show a blood clot or Vu's cyst. There are no fractures however we are unable to rule out a ligament injury therefore we placed you in a knee immobilizer as well as gave you crutches. Please rest, ice, and elevate your leg. Alternate between ibuprofen and Tylenol as needed for pain and symptoms. Please follow-up with the psychiatric clinical nurse specialist as they can further evaluate your knee. If any new or worsening symptoms occur including but not limited to increased redness, swelling, decreased range of motion of your knee, please seek emergent care. Prescriptions: No Action allopurinol 300 mg tablet 300 mg PO DAILY Qty: 90 1RF atorvastatin 10 mg tablet 1 tab PO DAILY levothyroxine 75 mcg tablet 1 tab PO DAILY lisinopril 10 mg tablet 1 tab PO BID omeprazole 20 mg capsule,delayed release(DR/EC) 1 cap PO DAILY Referrals: [facility] [Provider Group] Interventions: ED Discharge Assessment Last Done: 12/19/24 17:34 Discharge Date/Time: 12/19/24 17:35 Print Language: Hungarian
[2024-12-19 16:18] VITALS: BP 173/94; PULSE 70; RESP 20; TEMP 37.1; O2SAT 98
[2024-12-19 17:34] VITALS: BP 165/80; PULSE 71; RESP 16; TEMP 37.2; O2SAT 95
== END 2024-12-19 17:35 | disposition home or self-care (01) ==
PROVIDERS: Emergency Provider Emergency Medicine
DX: S83.92XA Sprain of unspecified site of left knee, initial encounter (principal); M54.2 Cervicalgia; R60.0 Localized edema; R51.9 Headache, unspecified; M25.562 Pain in left knee; W19.XXXA Unspecified fall, initial encounter; Y93.9 Activity, unspecified; Y92.9 Unspecified place or not applicable; Y99.8 Other external cause status; Z79.899 Other long term (current) drug therapy
CPT/HCPCS: 29505; 70450; 72125; 73564; 93971; 99284

== ENCOUNTER → 2024-12-19 12:51 | Outpatient (BNV) | payer MEDICARE, SELFPAY | PROVIDERS: Visit Provider Radiology Diagnostic Radiology | DX: M50.321 Other cervical disc degeneration at C4-C5 level (principal); S09.90XA Unspecified injury of head, initial encounter; S89.92XA Unspecified injury of left lower leg, initial encounter; W19.XXXA Unspecified fall, initial encounter; M25.462 Effusion, left knee | CPT/HCPCS: 70450; 72125; 73564; 93971 ==

== ENCOUNTER 2025-03-07 13:26 | Outpatient (AMB) | payer MEDICARE, SELFPAY ==
--- NOTE | 2025-03-07 13:30 | A.OFFPC_ITS ---
Vital Signs 03/07/25 13:49 Height 5 ft 10 in Weight 78.471 kg BMI 24.8 BP 158/100 H Blood Pressure Location Lt brachial Position Sitting Respiration 16 Pulse 80 Pulse Source Pulse Oximeter Temp 97.1 F Temp Source Temporal Artery Scan Pulse Oximetry (%) 99 Oxygen Delivery Method Room Air Intake Visit Reasons: Abscess & high BP - Croke pt [employer] Instructor Required: No Accompanied by: Self / Same As Patient Allergies azithromycin (From Zithromax Z-Maynor) Allergy (Mild, Verified 03/07/25 13:30) SWELLING,SKIN IRRITATION Medication List - Last Reconciled 03/07/25 by LUCY Saldana allopurinol 300 mg PO DAILY atorvastatin 1 tab PO DAILY doxycycline hyclate 100 mg PO BID labetalol 100 mg PO BID levothyroxine 1 tab PO DAILY lisinopril 20 mg PO BID mupirocin 2% 1 appl topical BID omeprazole 1 cap PO DAILY Tobacco use date assessed: 03/07/25 HPI HPI Comments History of Present Illness Details 74-year-old male with history of hypothy roidism, hyperlipidemia, hypertension, squamous cell carcinoma of the tonsil presents to the office today for manageme nt of chronic conditions, evaluation, establish care. Hypertension-have been quite uncontrolled with SBP up to 200. Reports with blood pressures this high he does experience some blurred vision as well as lightheadedness. No chest pain or headaches. He is currently taking lisinopril 10 mg twice daily and labetalol 100 mg b.i.d.. Blood pressure in the office today is 158/100 and on recheck 156/100. Hyperlipidemia-on atorvastatin Hypothyroidism-compliant with levothyroxine Squamous cell carcinoma of the tonsil-s/p chemo and radiation about 16 years ago. Does occasionally have dysphagia. No longer following with Oncology Concerns: Developed an abscess of the mid low back and presented to urgent Care with I and D performed. Was discharged with doxycycline which he has been taking as prescribed. No pain or ongoing drainage. His has been dressing the area ROS: General: No fevers, malaise, unintentional weight loss HEENT: No blurred vision, diplopia. No sore throat, nasal congestion, rhinorrhea, sinus pain, ear pain Cardiovascular: No chest pain, palpitations, or leg edema Respiratory: No shortness of breath, wheezing, cough MSK: No myalgia, back pain Neuro: No headaches, weakness, paresthesias Skin: No rashes or lesions. See HPI EXAM: Constitutional - Awake and Alert, No apparent distress Eyes - PERRL Cardiovascular - S1S2, RRR, No edema Respiratory - Normal lung expansion, Normal respiratory effort, No respiratory distress, CTA bilaterally Extremities - no calf tenderness bilaterally, no swelling Skin - Warm/Dry. Faint erythema overlying abscess s/p I&D. No residual drainage, warmth, or significant erythema Neurological - Alert & oriented x3 Psychological - Appropriate affect [facility] Medical History (Updated 03/07/25 @ 14:32 by LUCY Saldana) Hypothyroidism GERD (gastroesophageal reflux disease) Hyperlipidemia HTN (hypertension) Gout Squamous cell carcinoma of tonsil Surgical History (Updated 03/06/25 @ 16:54 by Eloisa Ruiz) History of colonoscopy (~10/25/22) H/O neck surgery Social History Unable to assess alcohol history related to: Unknown Patient Tobacco Use Status: Never used Tobacco e-Cigarette/Vaping Use: Never Used Questionnaire PHQ-9 Over the last 2 weeks, how often have you been bothered by any of the following problems? 1. Little interest or pleasure in doing things: not at all 2. Feeling down, depressed, or hopeless: several days 3. Trouble falling or staying asleep, or sleeping too much: several days 4. Feeling tired or having little energy: several days 5. Poor appetite or overeating: several days 6. Feeling bad about yourself - or that you are a failure or have let yourself or your family down: not at all 7. Trouble concentrating on things, such as reading the newspaper or watching television: several days 8. Moving or speaking so slowly that other people could have noticed. Or the opposite - being so fidgety or restless that you have been moving around a lot more than usual: not at all 9. Thoughts that you would be better off or of hurting yourself in some way: not at all Total score: 5 Source: Developed by Drs. Boyd Vazquez, June Sanford, Casimiro Marr and colleagues, with an educational juan jose from [employer]. Thrive Questionnaire Date Thrive assessed: 03/07/25 I am a: Patient What is your living situation today?: I have a steady place to live Within the past 12 months, did the food you bought not last and you didn't have the money to get more?: Never true Within the past 12 months, did you worry whether your food would run out before you got money to buy more?: Never true Do you have trouble paying for medicines?: No Do you have trouble getting transportation to medical appointments?: No Do you have trouble paying your heating and electricity bill?: No Do you have trouble taking care of your child, family member or friend?: No Do you have trouble with day-to-day activities such as bathing, preparing meals, shopping, managing finances, etc.?: No Are you currently unemployed and looking for a job?: No Are you interested in more education?: Yes THRIVE Score: 0 AUDIT C Alcohol Use Questionnaire (AUDIT-C) 1. How often do you have a drink containing alcohol?: 4 or more times a week 2. How many drinks containing alcohol do you have on a typical day when you are drinking?: 3 or 4 Total Score: 5 LEELEE-7 AMB Questionnaire LEELEE-7 Date LEELEE - 7 assessed: 03/07/25 Feeling nervous, anxious, or on edge: 1 = Several days Not being able to stop or control worryin = Not at all Worrying too much about different things: 1 = Several days Trouble relaxin = Not at all Being so restless that it is hard to sit still: 1 = Several days Becoming easily annoyed or irritable: 0 = Not at all Feeling afraid as if something awful might happen: 0 = Not at all Total LEELEE-7 score (0-4 normal; 5-9 mild; 10-14 moderate; 15-21 severe): 3 Source: Developed by Drs. Boyd Vazquez, June Sanford, Casimiro Marr and colleagues, with an educational juan jose from [employer]. Physical exam (Primary Care) Vital Signs: Last Vital Signs Temp 97.1 F 03/07/25 13:49 Pulse 80 03/07/25 13:49 Resp 16 03/07/25 13:49 BP 158/100 H 03/07/25 13:49 Pulse Ox 99 03/07/25 13:49 Oxygen Delivery Method Room Air 03/07/25 13:49 BMI result Body Mass Index 24.8 Tobacco/Smoking Status: Tobacco use Status Tobacco use date assessed 03/07/25 03/07/25 13:32 Patient Tobacco Use Status Never used Tobacco 03/07/25 13:32 e-Cigarette/Vaping Use Never Used 03/07/25 13:32 PHQ-9: PHQ-9 Score PHQ-9: Total score 5 03/07/25 13:54 Thrive Assessment: Date of Thrive Assessment Date Thrive assessed 03/07/25 03/07/25 13:54 Coding Level of Care Code New Pt Level 4 (28602) Complex EM visit Add On G2211 Diagnoses HTN (hypertension) I10 Hyperlipidemia E78.5 Hypothyroidism E03.9 Abscess of back L02.212 Assessment & Plan Assessment & Plan (1) HTN (hypertension): Code(s): I10 - Essential (primary) hypertension Category: Medical Plan: Remains elevated on recheck 156/100. Increase lisinopril to 20 mg twice daily. Continue labetalol 100 mg twice daily. He will continue monitoring his blood pressures at home and monitor for any hypotension. Follow-up in the office in 2-3 weeks. (2) Hyperlipidemia: Code(s): E78.5 - Hyperlipidemia, unspecified Category: Medical Plan: Lipid panel ordered. Continue atorvastatin. Diet low in saturated fats and highly processed foods (3) Hypothyroidism: Code(s): E03.9 - Hypothyroidism, unspecified Category: Medical Plan: TSH with reflex free T4. Continue levothyroxine (4) Abscess of back: Code(s): L02.212 - Cutaneous abscess of back [any part, except buttock] Category: Medical Plan: Continue doxycycline. Abscess is well healing without evidence of ongoing infection. Continue with dry dressings. Monitor for recurrent infection Plan Follow-up in the office in 2-3 weeks for blood pressure recheck. Labs to be completed following visit today Orders: Orders Basic Metabolic Panel Today N40.0 - Benign prostatic hyperplasia without lower urinary tract symptoms Complete Blood Count Auto Diff Today N40.0 - Benign prostatic hyperplasia without lower urinary tract symptoms Liver Panel Today N40.0 - Benign prostatic hyperplasia without lower urinary tract symptoms Prostate Specific Antigen Today N40.0 - Benign prostatic hyperplasia without lower urinary tract symptoms TSH reflex Free T4 Today N40.0 - Benign prostatic hyperplasia without lower urinary tract symptoms Lipid Panel Today N40.0 - Benign prostatic hyperplasia without lower urinary tract symptoms Medications: New lisinopril 20 mg PO BID 180 tabs 1RF
[2025-03-07 13:49] VITALS: BP 158/100; PULSE 80; RESP 16; TEMP 36.2; O2SAT 99; BMI 24.8
== END 2025-03-07 14:14 | disposition home or self-care (01) ==
LOC: HO.HMCHD 13:27
PROVIDERS: Visit Provider Physician Assistant
DX: I10 Essential (primary) hypertension (principal); E78.5 Hyperlipidemia, unspecified; E03.9 Hypothyroidism, unspecified; L02.212 Cutaneous abscess of back [any part, except buttock and flank]

== ENCOUNTER 2025-03-07 13:26 | Outpatient (REF) | payer MEDICARE, SELFPAY ==
[2025-03-07 14:41] LABS: MANUAL DIFF FLAG NO
[2025-03-07 15:21] LABS: Hematocrit 39.6 % (42.0-52.0); Hemoglobin 13.6 g/dl (14.0-18.0); Imm Gran Abs Auto 0.04 X10*3/uL (0.00-0.03); Imm Gran Pct Auto 0.9 % (0.0-0.4); Lymphocytes Absolute Auto 1.0 X10*3/uL (1.2-4.9); Mean Corpuscular HGB Conc 34.3 g/dl (31.0-36.0); Mean Corpuscular Hemoglobin 32.1 pg (27.0-33.0); Mean Corpuscular Volume 93.4 fL (80.0-98.0); NRBC Abs Auto 0.000 X10*3/uL (0.0-0.012); NRBC Pct Auto 0.0 /100WBC (0.0-0.2); Platelet Count 230 X10*3/uL (160-400); Red Blood Count 4.24 X10*6/uL (4.60-5.80); White Blood Count 4.6 X10*3/uL (4.8-10.8)
[2025-03-07 15:50] LABS: Alanine Aminotransferase 26 U/L (0-40); Albumin Level 4.5 g/dL (3.5-5.0); Alkaline Phosphatase 54 U/L (39-117); Anion Gap 8 (12-20); Aspartate Amino Transferase 27 U/L (5-37); Blood Urea Nitrogen 26 mg/dL (9-16); Calcium 9.4 mg/dL (8.4-10.2); Carbon Dioxide 32 mmol/L (22-29); Chloride 105 mmol/L (96-108); Cholesterol 148 mg/dL (<200); Estimated Glomerular Filt Rate 60; HDL Cholesterol 42 mg/dL (>40); Potassium 4.0 mmol/L (3.3-5.1); Sodium 141 mmol/L (135-145); Total Protein 7.1 g/dL (6.5-8.0); Triglycerides 99 mg/dL (<150)
[2025-03-07 16:07] LABS: Prostate Specific Antigen 1.46 ng/mL (<0.05-4.0)
[2025-03-07 16:55] LABS: Free T4 (Free Thyroxine) 1.00 ng/dL (0.71-1.85)
== END 2025-03-07 13:27 | disposition home or self-care (01) ==
LOC: HO.LAB 13:26
PROVIDERS: PCP Physician Assistant; Visit Provider Physician Assistant
DX: I10 Essential (primary) hypertension (principal); E78.5 Hyperlipidemia, unspecified; E03.9 Hypothyroidism, unspecified; L02.212 Cutaneous abscess of back [any part, except buttock and flank]; N40.0 Benign prostatic hyperplasia without lower urinary tract symptoms; Z79.899 Other long term (current) drug therapy; Z12.5 Encounter for screening for malignant neoplasm of prostate; Z13.39 Encounter for screening examination for other mental health and behavioral disorders; Z13.30 Encounter for screening examination for mental health and behavioral disorders, unspecified
CPT/HCPCS: 36415; 80048; 80061; 80076; 84153; 84439; 84443; 85025; 96127; 99202